=== PATIENT | female | born 1985 | race Caucasian/White ===

== ENCOUNTER 2016-12-15 11:24 | Emergency (ER) | payer OTHER, BC ==
--- NOTE | 2016-12-15 13:14 | DIAGNOSTIC IMAGING REPORT ---
PROCEDURE: US COMPLETE PELVIC W/TRANSVAG INDICATION: Left pelvic pain x 1 day, initial encounter TECHNIQUE: Transabdominal and endovaginal james scale and color Doppler sonographic images of the female pelvis were obtained. COMPARISON: CT abdomen/pelvis and pelvic ultrasound 02/11/2016 FINDINGS: TRANSABDOMINAL SCANS: Normal kidneys. Hysterectomy. TRANSVAGINAL SCANS: Normal vaginal cuff. Right ovary measures 2.4 x 1.9 x 3.0 cm with peripheral follicles. Left ovary measures 5.1 x 2.2 x 2.8 cm with a 2.4 cm cystic mass with internal echoes, hemorrhagic cyst versus endometrioma. There is vascular flow to both ovaries. There is no free fluid the cul-de-sac. IMPRESSION: 1. 2.4 cm left ovarian hemorrhagic cyst versus endometrioma 2. Hysterectomy
--- NOTE | 2016-12-15 14:30 | ED ORDER SUMMARY ---
..... Patient: EFFIE FARRIS OrderSheet [facility] VisitID: [id number] [place] [address] 31y, F Registration Date/Time: 12/15/2016 ORDER SHEET Weight: 63.5 kg (stated) Allergies: Penicillins GENERAL ORDERS: CBC w Diff Urgent (12:18 12/15/2016 Ty Pearce) (Ack 12:25 NHouse ER Tech1) (12:50 KWilliams R.N.) BMP Urgent (12:18 12/15/2016 Ty Pearce) (Ack 12:25 NHouse ER Tech1) (12:50 KWilliams R.N.) UA-Culture if indicated Urgent (12:18 12/15/2016 Ty Pearce) (Ack 12:25 NHouse ER Tech1) (13:48 Taylor R.N.) US Pelvic Complete Urgent (12:19 12/15/2016 Ty Pearce) (Ack 12:25 NHouse ER Tech1) (Cancelled: Wrong Order12:30 NHouse ER Tech1) US Pelvic Complete w Transvag Urgent (12:30 12/15/2016 NHouse ER Tech1 verbal order read back to Ty Pearce) (Ack 12:37 NHouse ER Tech1) (12:50 KWilliams R.N.) MEDICATION ORDERS: IV FLUIDS: IV NS : initial bolus 1000 mL (1000 mL/hr), then none - for X1 (NOW) (12:12/15/2016 Ty Peacre) (12:51 KWilliams R.N.) Morphine IV 4 mg (HIGH ALERT MEDICATION, NOW) (12:12/15/2016 Ty Pearce) (12:51 Que R.N.) Zofran IV 4 mg (NOW) (12:12/15/2016 Ty Pearce) (12:52 KWilliams R.N.) Toradol IV 30 mg (NOW) (14:05 12/15/2016 Taylor R.NJose verbal order read back to Ty Pearce) (14:07 Taylor R.N.) ORDER SHEET NOTES: [Electronically signed by Jermaine Ramirez R.N. (17:43 12/15/2016)] [Electronically signed by Madan Beckwith Dr. (05:58 12/19/2016)] [Electronically locked/signed by Jermaine Ramirez R.N. (17:43 12/15/2016)]
--- NOTE | 2016-12-15 14:30 | ED ORDER SUMMARY ---
..... Patient: EFFIE FARRIS OrderSheet [facility] VisitID: [id number] [place] [address] 31y, F Registration Date/Time: 12/15/2016 ORDER SHEET Weight: 63.5 kg (stated) Allergies: Penicillins GENERAL ORDERS: CBC w Diff Urgent (12:18 12/15/2016 Ty Pearce) (Ack 12:25 NHouse ER Tech1) (12:50 KWilliams R.N.) BMP Urgent (12:18 12/15/2016 Ty Pearce) (Ack 12:25 NHouse ER Tech1) (12:50 KWilliams R.N.) UA-Culture if indicated Urgent (12:18 12/15/2016 Ty Pearce) (Ack 12:25 NHouse ER Tech1) (13:48 Taylor R.N.) US Pelvic Complete Urgent (12:19 12/15/2016 Ty Pearce) (Ack 12:25 NHouse ER Tech1) (Cancelled: Wrong Order12:30 NHouse ER Tech1) US Pelvic Complete w Transvag Urgent (12:30 12/15/2016 NHouse ER Tech1 verbal order read back to Ty Pearce) (Ack 12:37 NHouse ER Tech1) (12:50 KWilliams R.N.) MEDICATION ORDERS: IV FLUIDS: IV NS : initial bolus 1000 mL (1000 mL/hr), then none - for X1 (NOW) (12:12/15/2016 Ty Pearce) (12:51 KWilliams R.N.) Morphine IV 4 mg (HIGH ALERT MEDICATION, NOW) (12:12/15/2016 Ty Pearce) (12:51 Que R.N.) Zofran IV 4 mg (NOW) (12:12/15/2016 Ty Pearce) (12:52 KWilliams R.N.) Toradol IV 30 mg (NOW) (14:05 12/15/2016 Taylor R.NJose verbal order read back to Ty Pearce) (14:07 Taylor R.N.) ORDER SHEET NOTES: [Electronically signed by Jermaine Ramirez R.N. (17:43 12/15/2016)] [Electronically signed by Madan Beckwith Dr. (05:58 12/19/2016)] [Electronically locked/signed by Jermaine Ramirez R.N. (17:43 12/15/2016)]
--- NOTE | 2016-12-15 14:30 | ED CLINICAL REPORT ---
Clinical Report - Physicians/Mid Levels [facility] [address] [place] [address] 12/15/2016 11:24 Patient: EFFIE FARRIS Time Seen: 1205; initial patient contact. Arrived- By private vehicle. Historian- patient. HISTORY OF PRESENT ILLNESS Chief Complaint: ABDOMINAL PAIN. At its maximum, severity described as moderate. When seen in the E.D., severity described as moderate. Modifying factors- worsened by movement. Relieved by rest. It is described as sharp. No radiation. It is described as located in the left lower quadrant. This started yesterday and is still present and worsening. It was abrupt in onset and has been waxing/waning but is not gone now. The patient has had nausea. No loss of appetite or diarrhea. No additional abdominal pain. No recent travel. Similar symptoms previously: Many times (History of ovarian cysts. Feels the pain is the same). Recent medical care: Not recently seen/assessed. REVIEW OF SYSTEMS No fever or chills. All systems otherwise negative, except as recorded above. PAST HISTORY See nurses notes. Medications: None. Allergies: Penicillins. SOCIAL HISTORY Never smoker. No alcohol use or drug use. No recent travel. Is a local resident. ADDITIONAL NOTES The nursing notes have been reviewed. PHYSICAL EXAM Vital Signs: 12/15/2016 12:08 BP: 137/92. HR: 86. RR: 16. O2 saturation: 100%. Temp: 98.2 F. Blood pressure normal. Oxygen saturation normal. Appearance: Alert. Oriented X3. No acute distress. Eyes: Pupils equal, round and reactive to light. Eyes normal inspection. ENT: Ears normal. Nose normal. Pharynx normal. Neck: Normal inspection. Neck supple. CVS: Normal heart rate and rhythm. Heart sounds normal. Pulses normal. Respiratory: No respiratory distress. Breath sounds normal. Chest nontender. No rales, rhonchi or wheezes. Abdomen: Soft. Bowel sounds normal. No organomegaly. No mass. (mild left lower abdominal tenderness. no rebound or guarding. no tenderness at mcburneys. negative ángel's). Back: Normal inspection. Skin: Skin warm and dry. Normal skin color. No rash. Normal skin turgor. Extremities: Extremities exhibit normal ROM. No lower extremity edema. LABS, X-RAYS, AND EKG Pelvic Sonogram: PROCEDURE: US COMPLETE PELVIC W/TRANSVAG INDICATION: Left pelvic pain x 1 day, initial encounter TECHNIQUE: Transabdominal and endovaginal james scale and color Doppler sonographic images of the female pelvis were obtained. COMPARISON: CT abdomen/pelvis and pelvic ultrasound 02/11/2016 FINDINGS: TRANSABDOMINAL SCANS: Normal kidneys. Hysterectomy. TRANSVAGINAL SCANS: Normal vaginal cuff. Right ovary measures 2.4 x 1.9 x 3.0 cm with peripheral follicles. Left ovary measures 5.1 x 2.2 x 2.8 cm with a 2.4 cm cystic mass with internal echoes, hemorrhagic cyst versus endometrioma. There is vascular flow to both ovaries. There is no free fluid the cul-de-sac. IMPRESSION: 1. 2.4 cm left ovarian hemorrhagic cyst versus endometrioma. The study was independently viewed by me and interpreted by the radiologist. The study was discussed with the radiologist (via pacs). Laboratory Tests: UA-Culture if indicated: (ALLYN: 12/15/2016 13:30) ( MsgRcvd 12/15/2016 14:19) Final results Test Result Flag Units (Reference) URINE COLOR YELLOW URINE APPEARANCE CLEAR URINE GLUCOSE NEGATIVE (NEGATIVE) URINE BILIRUBIN NEGATIVE (NEGATIVE) URINE KETONE NEGATIVE (NEGATIVE) URINE SPECIFIC GRAVITY 1.015 (1.010-1.030) URINE PH 6.5 (5.0-8.0) URINE PROTEIN NEGATIVE (NEGATIVE) URINE UROBILINOGEN 0.2 EU/dL (0.2-1.0) URINE NITRITE NEGATIVE (NEGATIVE) URINE BLOOD NEGATIVE (NEGATIVE) URINE LEUK ESTERASE NEGATIVE (NEGATIVE) URINE RBC 0-1 rbc/hpf (0-1) URINE WBC 0-1 wbc/hpf (0-1) URINE EPITHELIAL CELLS 1-3 EPI/hpf (0-5) URINE BACTERIA NONE SEEN (NONE SEEN) URINE COMMENT CULT NOT INDICATED 2+ AMORPHOUS CRYSTALSURINE CULTURES ARE SET-UP BASED ON THE FOLLOWING CRITERIA:POSITIVE NITRITEPOSITIVE LEUKOCYTE ESTERASEGREATER THAN 10 WHITE BLOOD CELLSMODERATE (2+) OR GREATER BACTERIA CBC w Diff: (ALLYN: 12/15/2016 12:40) ( [facility] [place] 12/15/2016 13:53) Final results Test Result Flag Units (Reference) WHITE BLOOD COUNT 9.8 K/uL (4.5-11.5) RED BLOOD COUNT 4.57 M/uL (4.00-5.20) HEMOGLOBIN 14.9 gm/dL (12.0-16.0) HEMATOCRIT 46.2 H % (36.0-46.0) MEAN CELL VOLUME 101 H fL (80-100) MEAN CORPUSCULAR HGB 33 pg (26-34) MEAN CORPUSCULAR HGB CONC 32 g/dL (31-37) RED CELL DISTRIBUTION WIDTH 12.8 % (11.6-14.8) PLATELET COUNT 357 K/uL (150-400) POLY % 66 % (50-75) BAND % 0 % (0-8) LYMPH 29 % (25-40) MONO 5 % (3-14) EOSINOPHIL % 0 % (0-4) BASOPHIL % 0 % (0-2) METAMYELOCYTE % 0 % (0-1) MYELOCYTE 0 % (0-1) OTHER CELL TYPE 0 BMP: (ALLYN: 12/15/2016 12:40) ( [facility] [place] 12/15/2016 13:12) Final results Test Result Flag Units (Reference) GLUCOSE 101 mg/dL (70-110) BUN 9 mg/dL (7-18) CREATININE 0.7 mg/dL (0.6-1.3) Estimated GFR >60 mL/min Estimated GFR- >60 mL/min Note: Persistent reduction over 3 months in eGFR<60 mL/min/1.73 m2 defines CKD. Patients with eGFR values>=60 mL/min/1.73 m2 may also have CKD if evidence ofpersistent proteinuria. Additional information may be foundat www.kidney.org. SODIUM 144 mmol/L (136-145) POTASSIUM 3.6 mmol/L (3.5-5.1) CHLORIDE 106 mmol/L (98-107) CARBON DIOXIDE 30 mmol/L (21-32) CALCIUM 8.9 mg/dL (8.5-10.1) . PROGRESS AND PROCEDURES Course of Care: The patient is a pleasant 31-year-old female with past medical history significant for ovarian cysts who presented for evaluation of left lower quadrant abdominal pain. At this time differential diagnosis includes ovarian torsion, ovarian cysts, or urinary tract infection. Patient's workup has been ordered including chemistries, complete blood count, and urinalysis. patient has hysterectomy. Do not feel urine test is needed at this time. A medications up and ordered as well as nausea medication. Patient is nontoxic and is in no acute distress. Symptoms are likely related to ovarian cysts as the patient has had similar pain in the past. Patient is agreeable to treatment plan. Workup shows patient's of complex cyst in the left lower quadrant on the left ovary. No signs of torsion. The rest of the patient's workup is unremarkable. Pain has been significantly improved while here in the emergency department with medications. Patient is able to tolerate by mouth. Because the patient does not have any surgical indication for her abdominal pain today in the emergency department, feel patient is able to follow up with her TELEMETRY REGISTERED NURSE. Patient states that she has been trying to get her ovaries removed because this continues to be a problem for her. I discussion patient in regards to the role of her ovaries and especially given her young age. Patient understands why the ovaries have not been removed yet however states that because of the severity of her symptoms, would still consider this option. At this time, the patient does not have a surgical abdomen. Do not the patient needs be admitted to the hospital or require further emergency Department evaluation/management. Patient will be instructed to follow-up with her TELEMETRY REGISTERED NURSE. Discussed the patient workup, diagnosis, home care, follow-up, and return precautions. All questions answered. The patient expressed understanding of these instructions and was agreeable to them. Disposition: Discharged. Condition: good. CLINICAL IMPRESSION Acute left lower quadrant abdominal pain. 12/15/2016 13:57 BP: 131/95. HR: 83. RR: 16. O2 saturation: 97%. Pain level now: 7/10. Hypertensive. Oxygen saturation normal. Single left ovarian cyst (complex). Essential hypertension. INSTRUCTIONS Warnings: GENERAL WARNINGS: Return or contact your physician immediately if your condition worsens or changes unexpectedly, if not improving as expected, or if other problems arise. SPECIFICALLY, return if you develop pain, fever, vomiting, the inability to keep fluids down, blood in vomitus, blood in diarrhea, fainting, lightheadedness or vaginal bleeding. Your Current Medications: CONTINUE TAKING THE FOLLOWING MEDICATIONS: None*. Prescription Medications: Geronimo 5 mg / 325 mg tablets: take 1 orally every 6 hours as needed for pain. Dispense twelve (12). No refill. Substitution is permissible. Follow-up: Return to the emergency department as needed. Follow up with your doctor in three days. Reason for referral: recheck today's concerns. Summary of care provided to patient via paper. Screening today revealed the patient's blood pressure to be in the normal range. The patient should follow up with a primary care provider for blood pressure management. Understanding of the discharge instructions verbalized by patient. (Electronically signed by Madan Beckwith Dr. 12/19/2016 5:58)
--- NOTE | 2016-12-15 14:30 | ED NURSING NOTES ---
Clinical Report - Nurses [facility] [address] [place] [address] 12/15/2016 11:24 Patient: EFFIE FARRIS TRIAGE Triage time 12:03. Acuity: LEVEL 3. Chief Complaint: ABDOMINAL PAIN and NAUSEA. 12:08 12/15/16. Alert. No acute distress. SEPSIS SCREEN: Sepsis Screen. Negative (no infection suspected/documented). Heart rate not greater than 90. Respiratory rate not greater than 20. --12:08 Sarkis Ramirez R.N. 12:08 12/15/16. BP: 137/92. HR: 86. RR: 16. O2 saturation: 100%. Temp: 98.2 F. Pain level now 7/10. --12:08 Sarkis Ramirez R.N. Weight: 63.5 kg stated. Height/Length: 63 inches Per Patient. BMI: 24.8. --12:06 Sarkis Ramirez R.N. Medications None. --12:06 Sarkis Ramirez R.N. Allergies Penicillins. --12:06 Sarkis Ramirez R.N. History Arrived by private vehicle. Historian: patient. Primary physician (KATRIN milan pt). ( left lower abd pain starting last night. States pain feels just like previous ovarian cysts.). This started last night. Treatment TRANSPORTATION CONSULTANT: None. PAST MEDICAL HX: Has had a hysterectomy. SOCIAL HX: Never smoker. No alcohol use or drug use. FALL RISK ASSESSMENT: Fall risk assessment completed. No fall risk identified. NUTRITIONAL RISK ASSESSMENT: The nutritional risk assessment revealed no deficiencies. FUNCTIONAL ASSESSMENT: Functional assessment: no impairments noted. LEARNING NEEDS ASSESSMENT: The learning needs assessment revealed no barriers. SKIN INTEGRITY ASSESSMENT: Skin integrity risk assessment completed. No skin integrity risk identified. --12:08 Sarkis Ramirez R.N. PROBLEMS: Ovarian Cyst. Hypertension. Chronic Headache. Migraine Headache. Tension-Type Headache. Sinusitis. Headache. --12:07 Sarkis Ramirez R.N. ADDITIONAL SURGERIES: . Hysterectomy. Previous Abdominal Surgery. Salpingectomy. --12:07 Sarkis Ramirez R.N. Interventions ID band on patient. To treatment room. --12:08 Sarkis Ramirez R.N. PHYSICAL ASSESSMENT 12:12/15/16. Ambulatory to room. GENERAL / NEURO / PSYCH: Alert. Oriented X 4. Appears in no acute distress. HEENT: Mucous membranes are pink. RESPIRATORY: Respirations not labored. CVS: Capillary refill less than 2 seconds. GI / : Abdomen soft. Abdominal tenderness in the suprapubic area and left lower quadrant. SKIN: Skin is warm and dry. --12:08 Sarkis Ramirez R.N. NURSING PROGRESS NOTES 12:12/15/16. The plan of care for this patient has been created. Patient gowned. Head of bed elevated. Call light placed in reach. Bed placed in lowest position. Brakes of bed on. Patient ready for evaluation- chart flagged. --12:08 Sarkis Ramirez R.N. 12:41 12/15/2016 Site #1 started via IV in the left forearm with an 20g angiocath, with aseptic technique and good blood return; one attempt. Blood drawn: rainbow set. Saline lock flushed with 10 mL saline. --12:51 Sarkis Ramirez R.N. 12:41 12/15/2016 Started bag #1 1000 mL IV Fluids IV NS (Saline); at 999 mL/hr over 1 hour(s) via site #1. Allergies verified and confirmed 5 rights. IV patency established. IV site checked: no pain, redness, or swelling. IV flushed thoroughly pre- and post-medication administration. --12:51 Sarkis Ramirez R.N. 12:42 12/15/2016 Zofran (Ondansetron HCl) IVP 4 mg given over 2 minute(s) via site #1. Allergies verified and confirmed 5 rights. IV patency established. IV site checked: no pain, redness, or swelling. IV flushed thoroughly pre- and post-medication administration. IVP given by RN. --12:52 Sarkis Ramirez R.N. 12:46 12/15/2016 Morphine IVP 4 mg given over 2 minute(s) via site #1. Allergies verified, confirmed 5 rights and sedative warning given to the patient. IV patency established. IV site checked: no pain, redness, or swelling. IV flushed thoroughly pre- and post-medication administration. IVP given by RN. --12:51 Sarkis Ramirez R.N. 13:45 12/15/16. Patient ID band checked for patient name, birthdate and medical record number: patient confirmed. Clean catch urine collected with return of yellow-colored clear urine; odor is normal; sample sent to lab for urinalysis and culture. Specimen labeled in the presence of the patient. --13:51 Jermaine Ramirez R.N. 13:57 12/15/16. BP: 131/95. HR: 83. RR: 16. O2 saturation: 97% on room air. Pain level now: 06/07. --13:58 Jermaine Ramirez R.N. 14:07 12/15/2016 Toradol IVP 30 mg given over 2 minute(s) via site #1. Allergies verified and confirmed 5 rights. IV patency established. IV site checked: no pain, redness, or swelling. IV flushed thoroughly pre- and post-medication administration. IVP given by RN. --14:07 Jermaine Ramirez R.N. 14:35 12/15/2016 Site #1 removed upon discharge. Catheter intact. Pressure dressing, bandaid and bandage applied. --17:40 Jermaine Ramirez R.N. 14:35 12/15/2016 IV Fluids IV NS Discontinued: bag #1 completed upon discharge. Total amount infused: 600 mL. IV patency established. IV site checked: no pain, redness, or swelling. IV flushed thoroughly. --17:41 Jermaine Ramirez R.N. DISPOSITION / DISCHARGE 14:35 12/15/16. BP: 126/78. HR: 84. RR: 16. O2 saturation: 97% on room air. Temp: 99.3 F (oral). Pain level now: 01/08. --17:36 Jermaine Ramirez R.N. Departure time: 1440. --17:37 Jermaine Ramirez R.N. 14:40. Condition at departure: improved. No learning barriers present. Discharge instructions provided and reviewed with the patient. Reviewed medication(s) precautions and dosing information (prescription given to pt). Reviewed referral to family practice for followup. Patient verbalized understanding. Written instructions provided in Azeri. The patient was discharged by the nurse practitioner. She was discharged home and accompanied by parent. She left the Emergency Department ambulatory and via private vehicle. Family member driving. FALL RISK ASSESSMENT: Fall risk assessment completed. No fall risk identified. --17:39 Jermaine Ramirez R.N. Locked/Released at 12/15/2016 17:43 by Jermaine Ramirez R.N.
--- NOTE | 2016-12-19 05:58 | ED MAR SUMMARY ---
..... Medication Administration Record [facility] [address] [place] [address] Patient: EFFIE FARRIS Visit ID: [id number] 31y, F Weight: 63.5 kg Height/Length: 63 in BMI: 24.8 ALLERGIES: Penicillins Start 12:41 12/15/2016 Sarkis Ramirez R.N., Stop 14:35 12/15/2016 Jermaine Ramirez R.N. Medication Administered: IV NS (SALINE), Dose: IV Fluids over 1 hour(s), Rate: 999 mL/hr, Dispensed: 1000 mL bag, Site: #1 left forearm. Medication Ordered: IV NS : initial bolus 1000 mL (1000 mL/hr), then none - for X1 (NOW). Given 12:42 12/15/2016 Sarkis Ramirez R.N. Medication Administered: ZOFRAN [IVP] (ONDANSETRON HCL), Dose: 4 mg IVP over 2 minute(s), Site: #1 left forearm. Medication Ordered: Zofran IV 4 mg (NOW). Given 12:46 12/15/2016 Sarkis Ramirez R.N. Medication Administered: MORPHINE [IVP], Dose: 4 mg IVP over 2 minute(s), Site: #1 left forearm. Medication Ordered: Morphine IV 4 mg (HIGH ALERT MEDICATION, NOW). Given 14:07 12/15/2016 Jermaine Ramirez RNguyễn Medication Administered: TORADOL [IVP], Dose: 30 mg IVP over 2 minute(s), Site: #1 left forearm. Medication Ordered: Toradol IV 30 mg (NOW).
--- NOTE | 2016-12-19 05:58 | ED MED RECONCILIATION SUMMARY ---
Patient: EFFIE FARRIS Medication Reconciliation Report [facility] VisitID: [id number] [place] [address] 31y, F Registration Date/Time: 12/15/2016 Weight: 63.5 kg Height/Length: 63 in. BMI: 24.8 ALLERGIES: Penicillins The patient's Home Medications are listed below: NONE. The source(s) of the original Home Medication information: Not obtained. The following Medications were given to the patient in the Emergency Department: IV NS IV Fluids bolus 0, then 999 mL/hr, administered: 12/15/2016 12:41:00 PM Morphine [IVP] IVP 4 mg, administered: 12/15/2016 12:46:00 PM Zofran [IVP] IVP 4 mg, administered: 12/15/2016 12:42:00 PM Toradol [IVP] IVP 30 mg, administered: 12/15/2016 2:07:00 PM The following Medications were prescribed to the patient: Liz[place] 5 mg / 325 mg tablets: take 1 orally every 6 hours as needed for pain. Dispense twelve (12). No refill. Substitution is permissible. -- Madan Beckwith Dr.
--- NOTE | 2016-12-19 05:58 | ED MED RECONCILIATION SUMMARY ---
Patient: EFFIE FARRIS Medication Reconciliation Report [facility] VisitID: [id number] [place] [address] 31y, F Registration Date/Time: 12/15/2016 Weight: 63.5 kg Height/Length: 63 in. BMI: 24.8 ALLERGIES: Penicillins The patient's Home Medications are listed below: NONE. The source(s) of the original Home Medication information: Not obtained. The following Medications were given to the patient in the Emergency Department: IV NS IV Fluids bolus 0, then 999 mL/hr, administered: 12/15/2016 12:41:00 PM Morphine [IVP] IVP 4 mg, administered: 12/15/2016 12:46:00 PM Zofran [IVP] IVP 4 mg, administered: 12/15/2016 12:42:00 PM Toradol [IVP] IVP 30 mg, administered: 12/15/2016 2:07:00 PM The following Medications were prescribed to the patient: Mulberry 5 mg / 325 mg tablets: take 1 orally every 6 hours as needed for pain. Dispense twelve (12). No refill. Substitution is permissible. -- Madan Beckwith Dr.
--- NOTE | 2016-12-19 05:58 | ED DISCHARGE INSTRUCTIONS ---
Patient: EFFIE FARRIS General Instructions [facility] VisitID: [id number] [place] [address] 31y, F Registration Date/Time: 12/15/2016 Acute left lower quadrant abdominal pain. 12/15/2016 13:57 BP: 131/95. HR: 83. RR: 16. O2 saturation: 97%. Pain level now: 06/07. Hypertensive. Oxygen saturation normal. Single left ovarian cyst (complex). Essential hypertension. INSTRUCTIONS Warnings: GENERAL WARNINGS: Return or contact your physician immediately if your condition worsens or changes unexpectedly, if not improving as expected, or if other problems arise. SPECIFICALLY, return if you develop pain, fever, vomiting, the inability to keep fluids down, blood in vomitus, blood in diarrhea, fainting, lightheadedness or vaginal bleeding. Your Current Medications: CONTINUE TAKING THE FOLLOWING MEDICATIONS: None*. Prescription Medications: [place] 5 mg / 325 mg tablets: take 1 orally every 6 hours as needed for pain. Dispense twelve (12). No refill. Substitution is permissible. Follow-up: Return to the emergency department as needed. Follow up with your doctor in three days. Reason for referral: recheck today's concerns. Summary of care provided to patient via paper. Screening today revealed the patient's blood pressure to be in the normal range. The patient should follow up with a primary care provider for blood pressure management. Understanding of the discharge instructions verbalized by patient. ADDITIONAL INFORMATION Abdominal Pain, Unknown Cause (Female) The exact cause of your abdominal (stomach) pain is not certain. This does not mean that this is something to worry about, or the right tests were not done. Everyone likes to know the exact cause of the problem, but sometimes with abdominal pain, there is no clear-cut cause, and this could be a good thing. The good news is that your symptoms can be treated, and you will feel better. Your condition does not seem serious now; however, sometimes the signs of a serious problem may take more time to appear. For this reason,it is important for you to watch for any new symptoms, problems,or worsening of your condition. Over the next few days, the abdominal pain may come and go, or be continuous. Other common symptoms can include nausea and vomiting. Sometimes it can be difficult to tell if you feel nauseous, you may just feel bad and not associate that feeling with nausea. Constipation, diarrhea, and a fever may go along with the pain. The pain may continue even if treated correctly over the following days. Depending on how things go, sometimes the cause can become clear and may require further or different treatment. Additional evaluations, medications, or tests may be needed. Home care Your health care provider may prescribe medications for pain, symptoms, or an infection. Follow the health care provider's instructions for taking these medications. General care Rest until your next exam. No strenuous activities. Try to find positions that ease discomfort. A small pillow placed on the abdomen may help relieve pain. Something warm on your abdomen (such as a heating pad) may help, but be careful not to burn yourself. Diet Do not force yourself to eat, especially if having cramps, vomiting, or diarrhea. Water is important so you do not get dehydrated. Soup may also be good. Sports drinks may also help, especially if they are not too acidic. Make sure you don't drink sugary drinks as this can make things worse. Take liquids in small amounts. Do not guzzle them. Caffeine sometimes makes the pain and cramping worse. Avoid dairy products if you have vomiting or diarrhea. Don't eat large amounts at a time. Wait a few minutes between bites. Eat a diet low in fiber (called a low-residue diet). Foods allowed include refined breads, white rice, fruit and vegetable juices without pulp, tender meats. These foods will pass more easily through the intestine. Avoid whole-grain foods, whole fruits and vegetables, meats, seeds and nuts, fried or fatty foods, dairy, alcohol and spicy foods until your symptoms go away. Follow-up care Follow up with your health care provider as instructed, or if your pain does not begin to improve in the next 24 hours. When to seek medical care Seek prompt medical care if any of the following occur: Pain gets worse or moves to the right lower abdomen New or worsening vomiting or diarrhea Swelling of the abdomen Unable to pass stool for more than three days Fever of 100.4F (38C) or higher, or as directed by your healthcare provider. Blood in vomit or bowel movements (dark red or black color) Jaundice (yellow color of eyes and skin) Weakness, dizziness Chest, arm, back, neck or jaw pain Unexpected vaginal bleeding or missed period Call 911 Call emergency services if any of the following occur: Trouble breathing Confusion Fainting or loss of consciousness Rapid heart rate Seizure Ovarian Cyst The ovary is a small organ located on each side of the uterus. During each menstrual cycle a tiny egg sac forms in the ovary. If the egg is released but does not occur, this sac usually dissolves. Sometimes, the sac may fill with fluid. It then enlarges into a painful cyst. Usually the cyst will rupture or shrink on its own. In either case, the pain gradually goes away over the next 1-3 days. If the cyst does not shrink or rupture, it may cause continued pain. Home Care: Rest in bed and avoid heavy exertion until you are feeling better. Heat to the lower abdomen usually helps (heating pad or hot packs -- a small towel soaked in hot water). You may use acetaminophen (Tylenol) or ibuprofen (Motrin, Advil) to control pain, unless another pain medicine was prescribed. [NOTE: If you have chronic liver or kidney disease or ever had a stomach ulcer or GI bleeding, talk with your doctor before using these medicines.] Follow Up: See your doctor within the next 2-3 days if your pain doesnt improve. Otherwise, follow up with your doctor after your next period or as directed by our staff. Get Prompt Medical Attention if any of the following occur: Pain worsens or fails to respond to the above measures Fever of 100.4F (38C) or higher, or as directed by your healthcare provider Heavy vaginal bleeding (soaking one pad an hour for three hours) You feel weak or dizzy Fainting Passage of a pink or james tissue with menstrual bleeding Pelvic Pain, Uncertain Cause Based on your visit today, the exact cause of your pelvic pain is not certain. But your condition does not appear to be serious at this time. However, the signs of a serious problem may take more time to appear. Therefore, it is important for you to watch for any new symptoms or worsening of your condition. Home Care: Rest until you are feeling better. Avoid sexual intercourse until your pain goes away. You may use acetaminophen (Tylenol) or ibuprofen (Motrin, Advil) to control pain, unless another medicine was prescribed. [NOTE: If you have chronic liver or kidney disease or ever had a stomach ulcer or GI bleeding, talk with your doctor before using these medicines.] Follow Up with your doctor as advised. If a culture test was taken, call in two days for the results. If the culture is positive, you will be given more advice at that time. Otherwise, follow-up with your doctor or this facility as instructed. Get Prompt Medical Attention if any of the following occur: Fever of 100.4F (38C) or higher, or as directed by your healthcare provider Vaginal discharge Worsening pain Weakness, dizziness or fainting Unexpected vaginal bleeding or passage of james or white tissue from the vagina Pain that moves to the right lower abdomen High Blood Pressure --Established High Blood Pressure (Hypertension) is a chronic disease. The cause is unknown in most cases. It can usually be controlled with lifestyle changes and/or medicines. Symptoms of high blood pressure may include headache, dizziness, visual changes, chest pain and shortness of breath. Sometimes it causes no symptoms at all. However, even if there are no symptoms, untreated high blood pressure increases the risk of heart attack, also known as acute myocardial infarction, or AMI, and stroke. It is a serious health risk and should not be ignored. A normal blood pressure is 120/80 or less. The first (top) number is the "systolic" pressure. The second (bottom) number is the "diastolic" pressure. Hypertension exists when either the top number is 140 or higher, OR the bottom number is 90 or higher on repeated measurements. Home Care: All patients with high blood pressure should do the following to lower their pressure. If you are on medicines, then these methods may reduce or eliminate your need for medicines in the future. Begin a weight loss program if you are overweight. Reduce your salt intake. Avoid high salt foods (olives, pickles, smoked meats, salted potato chips, etc.). Do not add salt to your food at the table. Use only small amounts of salt when cooking. Begin an exercise program. Discuss with your doctor what type of exercise program would be best for you. It doesn't have to be difficult. Even brisk walking for 20 minutes three times a week is a good form of exercise. Avoid medicines which contain heart stimulants. This includes many cold and sinus decongestant pills and sprays as well as diet pills. Check the warnings about hypertension on the label. Stimulants such as amphetamine or cocaine could be lethal for someone with hypertension. Never take these. Limit your caffeine intake or switch to caffeine-free products. Stop smoking. If you are a long-time smoker, this can be hard. Enroll in a stop-smoking program to improve your chance of success. Learning how to handle stress better is an important part of any program to lower blood pressure. Learn about relaxation methods such as meditation, yoga or biofeedback. If medicines were prescribed, take them exactly as directed. Missing doses may cause your blood pressure get out of control. Consider buying an automatic blood pressure machine (available at most pharmacies). Use this to monitor your blood pressure at home and report the results to your doctor. Follow Up: Regular visits to your own physician for blood pressure checks and medicine adjustment is an important part of your care. Make a follow-up appointment as directed by our staff. Get Prompt Medical Attention if any of the following occur: Chest pain or shortness of breath Severe headache Throbbing or rushing sound in the ears Nosebleed Sudden severe abdominal pain Extreme drowsiness, confusion or fainting Dizziness or vertigo (dizziness with spinning sensation) Weakness of an arm or leg or one side of the face Difficulty with speech or vision Hydrocodone Bitartrate, Acetaminophen Oral tablet What is this medicine? ACETAMINOPHEN; HYDROCODONE (a set a LEONIDES gianni fen; leroy droe KOE done) is a pain reliever. It is used to treat mild to moderate pain. How should I use this medicine? Take this medicine by mouth. Swallow it with a full glass of water. Follow the directions on the prescription label. If the medicine upsets your stomach, take the medicine with food or milk. Do not take more than you are told to take. Talk to your drum barker operator regarding the use of this medicine in children. This medicine is not approved for use in children. What side effects may I notice from receiving this medicine? Side effects that you should report to your doctor or health home care scheduler as soon as possible: allergic reactions like skin rash, itching or hives, swelling of the face, lips, or tongue breathing problems confusion feeling faint or lightheaded, falls stomach pain yellowing of the eyes or skin Side effects that usually do not require medical attention (report to your doctor or health home care scheduler if they continue or are bothersome): nausea, vomiting stomach upset What may interact with this medicine? alcohol antihistamines isoniazid medicines for depression, anxiety, or psychotic disturbances medicines for sleep muscle relaxants naltrexone narcotic medicines (opiates) for pain phenobarbital ritonavir tramadol What if I miss a dose? If you miss a dose, take it as soon as you can. If it is almost time for your next dose, take only that dose. Do not take double or extra doses. Where should I keep my medicine? Keep out of the reach of children. This medicine can be abused. Keep your medicine in a safe place to protect it from theft. Do not share this medicine with anyone. Selling or giving away this medicine is dangerous and against the law. Store at room temperature between 15 and 30 degrees C (59 and 86 degrees F). Protect from light. Keep container tightly closed. Throw away any unused medicine after the expiration date. Discard unused medicine and used packaging carefully. Pets and children can be harmed if they find used or lost packages. What should I tell my health care provider before I take this medicine? They need to know if you have any of these conditions: brain tumor Crohn's disease, inflammatory bowel disease, or ulcerative colitis drink more than 3 alcohol-containing drinks per day drug abuse or addiction head injury heart or circulation problems kidney disease or problems going to the bathroom liver disease lung disease, asthma, or breathing problems an unusual or allergic reaction to acetaminophen, hydrocodone, other opioid analgesics, other medicines, foods, dyes, or preservatives or trying to get breast-feeding What should I watch for while using this medicine? Tell your doctor or health home care scheduler if your pain does not go away, if it gets worse, or if you have new or a different type of pain. You may develop tolerance to the medicine. Tolerance means that you will need a higher dose of the medicine for pain relief. Tolerance is normal and is expected if you take the medicine for a long time. Do not suddenly stop taking your medicine because you may develop a severe reaction. Your body becomes used to the medicine. This does NOT mean you are addicted. Addiction is a behavior related to getting and using a drug for a non-medical reason. If you have pain, you have a medical reason to take pain medicine. Your doctor will tell you how much medicine to take. If your doctor wants you to stop the medicine, the dose will be slowly lowered over time to avoid any side effects. You may get drowsy or dizzy when you first start taking the medicine or change doses. Do not drive, use machinery, or do anything that may be dangerous until you know how the medicine affects you. Stand or sit up slowly. There are different types of narcotic medicines (opiates) for pain. If you take more than one type at the same time, you may have more side effects. Give your health care provider a list of all medicines you use. Your doctor will tell you how much medicine to take. Do not take more medicine than directed. Call emergency for help if you have problems breathing. The medicine will cause constipation. Try to have a bowel movement at least every 2 to 3 days. If you do not have a bowel movement for 3 days, call your doctor or health home care scheduler. Too much acetaminophen can be very dangerous. Do not take Tylenol (acetaminophen) or medicines that contain acetaminophen with this medicine. Many non-prescription medicines contain acetaminophen. Always read the labels carefully. You have been given the following additional information: Abdominal Pain, Unknown Cause, (Female) Ovarian Cyst Pelvic Pain, Unknown Cause Hypertension, Established Hydrocodone Bitartrate, Acetaminophen Oral tablet (Electronically signed by Madan Beckwith Dr. 12/19/2016 5:58)
--- NOTE | 2016-12-19 05:58 | ED MAR SUMMARY ---
..... Medication Administration Record [facility] [address] [place] [address] Patient: EFFIE FARRIS Visit ID: [id number] 31y, F Weight: 63.5 kg Height/Length: 63 in BMI: 24.8 ALLERGIES: Penicillins Start 12:41 12/15/2016 Sarkis Ramirez R.N., Stop 14:35 12/15/2016 Jermaine Ramirez R.N. Medication Administered: IV NS (SALINE), Dose: IV Fluids over 1 hour(s), Rate: 999 mL/hr, Dispensed: 1000 mL bag, Site: #1 left forearm. Medication Ordered: IV NS : initial bolus 1000 mL (1000 mL/hr), then none - for X1 (NOW). Given 12:42 12/15/2016 Sarkis Ramirez R.N. Medication Administered: ZOFRAN [IVP] (ONDANSETRON HCL), Dose: 4 mg IVP over 2 minute(s), Site: #1 left forearm. Medication Ordered: Zofran IV 4 mg (NOW). Given 12:46 12/15/2016 Sarkis Ramirez R.N. Medication Administered: MORPHINE [IVP], Dose: 4 mg IVP over 2 minute(s), Site: #1 left forearm. Medication Ordered: Morphine IV 4 mg (HIGH ALERT MEDICATION, NOW). Given 14:07 12/15/2016 Jermaine Ramirez RNguyễn Medication Administered: TORADOL [IVP], Dose: 30 mg IVP over 2 minute(s), Site: #1 left forearm. Medication Ordered: Toradol IV 30 mg (NOW).
== END 2016-12-15 14:40 | disposition home or self-care (01) ==
LOC: ED SRH 11:24
DX: N83.202 Unspecified ovarian cyst, left side (principal); I10 Essential (primary) hypertension; Z88.0 Allergy status to penicillin
CPT/HCPCS: 90004; 90047; 91643; 95059